=== PATIENT | male | born 1965 | race Caucasian/White ===

== ENCOUNTER 2019-03-28 19:06 | Emergency (ER) | payer SELFPAY ==
[~2019-03-28] VITALS: Ht 170.2 cm; Wt 81.6 kg
[2019-03-28 19:06] VITALS: BP 141/81
--- NOTE | 2019-03-28 19:18 | NUR ---
SEIZURE PADS PLACED AT PTS BED SIDE
--- NOTE | 2019-03-28 19:20 | NUR ---
ATTEMPTED TO ATTACH PT TO MONITORING SYSTEM. PT STATED "I DONT WANT TO BE HERE".
--- NOTE | 2019-03-28 19:25 | NUR ---
PATIENT LEFT WITHOUT BEING SEEN BY DR. JARA. IV DISCONTINUED. NO FURTHER CARE PROVIDED FOR PATIENT.
== END 2019-03-28 19:25 | disposition left against medical advice (07) ==
LOC: MED 19:06
DX: Z53.21 Procedure and treatment not carried out due to patient leaving prior to being seen by health care provider (principal); R53.1 Weakness